=== PATIENT | male | born 1950 | race African-American/Black ===

== ENCOUNTER 2017-10-31 12:37 | Observation (INO) | payer MEDICARE, SELFPAY ==
[2017-10-31 13:04] LABS: #Eosinphils 0.2 thou/uL (0.0-0.7); #Lymphocytes 2.1 thou/uL (1.20-3.40); #Monocytes 0.4 thou/uL (0.11-0.59); #Neutrophils 2.6 thou/uL (1.40-6.50); %Basophils 0.9 % (0.0-1.0); %Eosinophils 3.3 % (0.0-10.0); %Lymphocytes 39.7 % (21.0-51.0); %Monocytes 6.7 % (0.0-10.0); %Neutrophils 49.4 % (42.0-75.0); Hemoglobin 14.1 g/dL (14.0-18.0); Mean Corpuscular HGB CONC 33.6 g/dL (32.0-36.0); Mean Corpuscular Hemoglobin 30.3 pg (27.0-31.0); Mean Corpuscular Volume 90.2 fL (78.0-98.0); Mean Platelet Volume 7.1 fL (7.4-10.4); Platelet Count 302 thou/uL (130-400); RBC Distribution Width 12.2 % (11.5-14.5); Red Blood Cell (RBC) Count 4.65 mill/uL (4.70-6.10); White Blood Cell (WBC) Count 5.3 thou/uL (4.8-10.8)
[2017-10-31 13:21] LABS: ALT (SGPT) 14 U/L (8-55); AST (SGOT) 13 U/L (5-34); Alkaline Phosphatase 77 U/L (40-150); Anion Gap 11 mmol/L (10-20); BUN (Urea Nitrogen) 13 mg/dL (8.4-25.7); Bilirubin, Total 0.5 mg/dL (0.2-1.2); CK (CPK) 92 U/L (30-200); Calc. Creatinine Clearance 0 mL/min (70-130); Calcium 9.1 mg/dL (7.8-10.44); Carbon Dioxide 25 mmol/L (23-31); Chloride 107 mmol/L (98-107); Estimated GFR-MDRD 69; Globulin 2.9 g/dL (2.4-3.5); Glucose 240 mg/dL (80-115); Lipase 30 U/L (8-78); Potassium 4.3 mmol/L (3.5-5.1); Protein, Total 6.9 g/dL (5.8-8.1); Sodium 139 mmol/L (136-145)
[2017-10-31 13:23] LABS: CKMB 1.2 ng/mL (0-6.6); Troponin I Less than 0.010 ng/mL (< 0.028)
--- NOTE | 2017-10-31 13:35 | RAD ---
PORTABLE AP CHEST: Date: 10/31/17 HISTORY: Chest pain. COMPARISON: 04/19/12. FINDINGS: Cardiac silhouette and pulmonary vasculature are within normal limits. Linear densities are seen with in the right mid lung zone, which was also present on the prior study, but is slightly more prominent on this exam. This is probably related to mild scarring. Lungs are otherwise clear. Degenerative roula nges are present in the spine. No other interval change. IMPRESSION: 1. No acute cardiopulmonary process. 2. Findings likely related to linear area of scarring in the right mid lung zone. POS: [facility]
[2017-10-31] MEDS ORDERED: Ketorolac Tromethamine 30 MG/ML VIAL ONE (14:28)
--- NOTE | 2017-10-31 15:24 | ULT ---
RIGHT UPPER QUADRANT ULTRASOUND: HISTORY: Pain. Right-sided chest pain. Nausea, vomiting, and diarrhea. COMPARISON: 06/13/2008 TECHNIQUE: Utilizing a Multi-Hertz transducer, sonographic imaging of the right upper quadrant was performed in the longitudinal and transverse planes. FINDINGS: The pancreas is obscured by bowel gas. Limited evaluation of the hepatic parenchyma due to bowel gas. There is increased echogenicity of th e visualized hepatic parenchyma, which may be due to technical limitations, hepatic steatosis, or hep atocellular disease. The right hepatic lobe measures 15.5 cm. The main portal vein is patent. Appropriate directional flow. Common bile duct diameter is 0.2 cm. Within the lumen of the gallbladder, there is no evidence of sludge or stones. The gallbladder wall is not thickened. No pericholecystic fluid. A negative Bernard sign is reported. Right kidney: No hydronephrosis. Maximum dimension is 9 cm. IMPRESSION: 1. No sonographic evidence of cholelithiasis or cholecystitis. 2. Increased echogenicity of the liver, as described above. POS: [facility]
[2017-10-31] MEDS ORDERED: Aspirin 325 MG TAB ONE (16:39)
[2017-10-31] MEDS ORDERED: Nitroglycerin 2% Ointment 1 INCH/1 GM Packet ONE (16:39)
[2017-10-31 18:41] LABS: CKMB 1.1 ng/mL (0-6.6); Troponin I Less than 0.010 ng/mL (< 0.028)
--- NOTE | 2017-10-31 19:04 | PDOC.FPRHP ---
- History of Present Illness Chief Complaint: Chest Pain History of Present Illness: This is a 67yo M with pmh of CVA and HTN presenting with 3-4 day hx of increasing R chest and RUQ abdominal pain. Pt reports that pain is sharp and pulling in character and that it is exacerbated by cough. Onset happened when he was sitting down and was sudden in onset. Pt also reports that he has intermittent Pain in the RUQ of his abdomen. Pt has not had any changes in diet and denies recent mass consumption of alcohol ED Course: CXR: no acute cardiopulm changes, R lung linear scarring, troponin negative, Abdominal US- no evidence of cholecystitis or cholelithiasis with negative harvey, pancreas not visualized well - Allergies/Adverse Reactions Allergies Allergy/AdvReac Type Severity Reaction Status Date / Time No Known Drug Allergies Allergy Verified 07/23/13 01:07 - Home Medications Medication Instructions Recorded Confirmed Type Aspirin [Ecotrin Regular Strength] 325 mg PO DAILY #0 tab 07/23/13 10/31/17 Rx Atorvastatin Calcium [Lipitor] 40 mg PO HS #30 tab 11/01/17 Rx Lisinopril [Zestril] 10 mg PO DAILY #30 tab 11/01/17 Rx glipiZIDE [Glucotrol XL] 5 mg PO QAM-WM #30 tab 11/01/17 Rx metFORMIN HCl [Metformin HCl] 1,000 mg PO BID #60 tablet 11/01/17 Rx - History PMHx: HTN, DM PSHx: R knee FHx: negative Social: denies EtOH/tobacco/drugs - Review of Systems General: denies: fever/chills, fatigue ENT: denies: nasal congestion, rhinorrhea Respiratory: denies: congestion, shortness of breath Cardiovascular: reports: chest pain. denies: palpitation Gastrointestinal: reports: abdominal pain. denies: nausea, vomiting Genitourinary: denies: dysuria Musculoskeletal: denies: stiffness, swelling - Vital signs BP: [146/84] HR: [59] RR: [16] Tmax: [97.7] Pox: [94]% on [RA] Wt: [100kg] - Physical Exam Constitutional: NAD, awake, alert and oriented HEENT: normocephalic and atraumatic, EOMI, grossly normal vision, normal nasal mucosa, MMM Neck: trachea midline Chest: other (some reproducible chest pain on the R) Heart: RRR, normal S1/S2 Lungs: CTAB, no respiratory distress Abdomen: soft, other (negative harvey, RUQ and RLQ tenderness to palpation, negative rovsing, negative obturator, negative heel tap) Neurological: no focal deficit Skin: no rash/lesions, good turgor Psychiatric: normal mood and affect, good judgment and insight FMR H&P: Results - Labs Result Diagrams: 10/31/17 12:54 10/31/17 12:54 Lab results: WBC 5.3 thou/uL (4.8-10.8) 10/31/17 12:54 Hgb 14.1 g/dL (14.0-18.0) 10/31/17 12:54 Hct 41.9 % (42.0-52.0) L 10/31/17 12:54 MCV 90.2 fL (78.0-98.0) 10/31/17 12:54 Plt Count 302 thou/uL (130-400) 10/31/17 12:54 Neutrophils % 49.4 % (42.0-75.0) 10/31/17 12:54 Sodium 139 mmol/L (136-145) 10/31/17 12:54 Potassium 4.3 mmol/L (3.5-5.1) 10/31/17 12:54 Chloride 107 mmol/L (98-107) 10/31/17 12:54 Carbon Dioxide 25 mmol/L (23-31) 10/31/17 12:54 BUN 13 mg/dL (8.4-25.7) 10/31/17 12:54 Creatinine 1.26 mg/dL (0.6-1.3) 10/31/17 12:54 Glucose 240 mg/dL (80-115) H 10/31/17 12:54 Calcium 9.1 mg/dL (7.8-10.44) 10/31/17 12:54 Total Bilirubin 0.5 mg/dL (0.2-1.2) 10/31/17 12:54 AST 13 U/L (5-34) 10/31/17 12:54 ALT 14 U/L (8-55) 10/31/17 12:54 Alkaline Phosphatase 77 U/L (40-150) 10/31/17 12:54 Creatine Kinase 92 U/L (30-200) 10/31/17 12:54 CK-MB (CK-2) 1.1 ng/mL (0-6.6) 10/31/17 17:58 Serum Total Protein 6.9 g/dL (5.8-8.1) 10/31/17 12:54 Albumin 4.0 g/dL (3.4-4.8) 10/31/17 12:54 Lipase 30 U/L (8-78) 10/31/17 12:54 FMR H&P: A/P - Problem List (1) Atypical chest pain Status: Acute Code(s): R07.89 - OTHER CHEST PAIN (2) History of CVA (cerebrovascular accident) Status: Chronic Code(s): Z86.73 - PRSNL HX OF TIA (TIA), AND CEREB INFRC W/O RESID DEFICITS (3) Diabetes Status: Chronic Code(s): E11.9 - TYPE 2 DIABETES MELLITUS WITHOUT COMPLICATIONS (4) Hypertension Status: Chronic Code(s): I10 - ESSENTIAL (PRIMARY) HYPERTENSION - Plan Atypical Chest likely secondary to costochondritis. A- Trop/EGK/CXR negative but has heart score 5. pain is reproducible. GI causes seem unlikely with exam and normal lipase/liver enzymes. P- stress test. -trend trops -Mg, Phos, TSH, FLP -NPO after midnight -NSAIDs prn. Hypertension A-BP stable P-home meds HLD -home meds. Diabetes Mellitus. -home meds -A1C Hx of CVA in 2013 -prior watershed infart of left cerebrum; no deficits. FMR H&P: Upper Level - Pertinent history Raul Rausch is a 67 year old male with a past history of DM type II, hyperlipidemia, hypertension, and history of CVA/TIA who presents to the ED with a 2 day history of R-sided chest pain and RUQ pain for the past 3-4 days. The pain occurred while at rest. It is exacerbated by deep inspiration and coughing and alleviated by certain position changes. He denies any URI type symptoms or fever. He just started coughing today. He has never had pain like this before. - Pertinent findings Vitals: T: 97.6 RR: 16 Pulse: 59 BP: 146/84 SpO2: 94% on RA Wt: 100.24 kg. Physical exam General: alert and oriented; in no apparent distress. Heart: regular rate and rhythm with no murmurs, rubs, or gallops. Reproducible right anterior chest wall tenderness to palpation Lungs: clear to auscultation bilaterally; no crackles, wheezes, or rhonchi. Extremities: 2+ peripheral pulses; no edema. RUQ US: no evidence of cholecystitis. CXR: area of scarring in right mid lung zone; no acute process. EKG: No ST segment elevations or depressions. Trop: < 0.01 - Plan Date/Time: 10/31/17 1904 I, Tiffany Rodriguez, have evaluated this patient and agree with findings/plan as outlined by mechanical intern resident. Pertinent changes/additions are listed here. Atypical Chest likely secondary to costochondritis. - due to heart score of 5, will proceed with stress test. - trend trops; Mg, Phos, TSH, FLP - NPO after midnight - NSAIDs prn. Hypertension - BP stable. will resume home meds Hyperlipidemia - will resume home meds. Diabetes Mellitus. - will resume home meds - A1C Hx of CVA in 2014 - prior watershed infart of left cerebrum; no deficits. Attending Addendum - Attending Addendum Date/Time: 11/01/17 0100 I personally evaluated the patient and discussed the management with Dr. Doshi and Dr. Rodriguez I agree with the History, Examination, Assessment and Plan documented above with any addition or exceptions noted below. 67 yo male with multiple risk factors and medical problems admitted for ASC rule out. Atypical chest pain but significant risk factors. Current hx related to MSK vs pluersy. But due to risk with trend trop and EKG overnight with stress in AM. Minimize risk factors. Adjust home meds as needed. Treat pain. ABrayMD
[2017-10-31] MEDS ORDERED: Dextrose 5% in Water 1,000 ML IV PRN (20:23)
[2017-10-31] MEDS ORDERED: Dextrose 50% Abboject 50 ML SYRINGE SLOW IVP PRN (20:23)
[2017-10-31] MEDS ORDERED: Ondansetron ODT 4 MG TAB PO PRN (20:23)
[2017-10-31] MEDS ORDERED: Acetaminophen 325 MG TAB PO PRN (20:23)
[2017-10-31] MEDS ORDERED: Albuterol Sulfate 1.25 MG/3 ML NEB NEB SCH (20:30)
[2017-10-31 20:37] VITALS: BMI 37.8
[2017-10-31] MEDS ORDERED: Pravastatin Sodium 40 MG TAB PO SCH (21:00)
[2017-10-31] MEDS: Famotidine 20 MG TAB PO SCH (22:01)
[2017-10-31] MEDS: Insulin Regular 300 UNITS/3 ML VIAL SC PRN (22:02)
[2017-10-31 22:40] LABS: Hemoglobin A1c 9.1 % (4.0-6.0)
[2017-10-31 22:50] LABS: Cardiac Risk 5.9 (Less than 4.5)
[2017-10-31 22:54] LABS: Magnesium 1.9 mg/dL (1.6-2.6); Troponin I Less than 0.010 ng/mL (< 0.028)
--- NOTE | 2017-11-01 05:44 | PDOC.FM ---
- Subjective Subjective: Pt says that his CP only bothers him when he moves. States that he wants a glucometer so that he can check his blood sugars at home. States he has had polyuria. - Objective Vital Signs & Weight: Vital Signs (12 hours) Temp Pulse Resp BP BP Pulse Ox 11/01/17 02:57 98 F 64 18 140/74 95 10/31/17 23:21 98.2 F 62 18 149/77 H 95 10/31/17 22:47 53 L 16 95 10/31/17 20:15 97.7 F 53 L 15 184/87 H 98 Weight Weight 102.994 kg I&O: 10/30/17 10/31/17 11/01/17 06:59 06:59 06:59 Intake Total 610 Balance 610 Result Diagrams: 10/31/17 12:54 10/31/17 12:54 <Lizette Ha - Last Filed: 11/01/17 09:00> - Objective Vital Signs & Weight: Vital Signs (12 hours) Temp Pulse Resp BP BP Pulse Ox 11/01/17 07:14 97.8 F 54 L 16 134/68 97 11/01/17 02:57 98 F 64 18 140/74 95 10/31/17 23:21 98.2 F 62 18 149/77 H 95 10/31/17 22:47 53 L 16 95 Weight Weight 102.994 kg I&O: 10/31/17 11/01/17 11/02/17 06:59 06:59 06:59 Intake Total 610 Balance 610 Result Diagrams: 10/31/17 12:54 10/31/17 12:54 <Darion Khan - Last Filed: 11/01/17 09:32> Phys Exam - Physical Examination Constitutional: NAD HEENT: PERRLA, oral pharynx no lesions Respiratory: no wheezing, no rales, no rhonchi, clear to auscultation bilateral Cardiovascular: RRR 1/6 systolic murmur Gastrointestinal: soft, non-tender, no distention, positive bowel sounds Musculoskeletal: no edema, pulses present Neurological: moves all 4 limbs Psychiatric: normal affect, A&O x 3 Skin: normal turgor, cap refill <2 seconds <Lizette Ha - Last Filed: 11/01/17 09:00> Dx/Plan (1) Atypical chest pain Code(s): R07.89 - OTHER CHEST PAIN Status: Acute (2) Diabetes Code(s): E11.9 - TYPE 2 DIABETES MELLITUS WITHOUT COMPLICATIONS Status: Chronic (3) Hypertension Code(s): I10 - ESSENTIAL (PRIMARY) HYPERTENSION Status: Chronic (4) History of CVA (cerebrovascular accident) Code(s): Z86.73 - PRSNL HX OF TIA (TIA), AND CEREB INFRC W/O RESID DEFICITS Status: Chronic - Plan Plan: 57 yo M with atypical chest pain likely 2/2 costochondritis Atypical Chest likely secondary to costochondritis. - EKG/CXR negative. Cardiac enzymes negative. - CXR did show R lung linear scarring - heart score 5. pain is reproducible. - GI causes seem unlikely with exam and normal lipase/liver enzymes. - Mg, Phos - normal - TSH -wnl - NPO since midnight - stress test this AM Hypertension - resume home meds HLD -home meds. -FLP- Triglycerides high at 153 -Start high intensity statin Diabetes Mellitus. - uncontrolled, A1C 9.1. - resume home meds - start mod SSI and glyburide Hx of CVA in 2014 -prior watershed infart of left cerebrum; no deficits. <Lizette Ha - Last Filed: 11/01/17 09:00> Attending Addendum - Attending Addendum Date/Time: 11/01/1731 I personally evaluated the patient and discussed the management with Dr. Ha. I agree with the History, Examination, Assessment and Plan documented above with any addition or exceptions noted below. Patient here with reproducible chest pain with movement. He has been effectively ruled out for ACS. Due to his risk factors, obtaining stress testing this morning. He needs modulation of his DM regimen for improved control. Await results of stress test and anticipate discharge afterward. Diabetic education. <Darion Khan R - Last Filed: 11/01/17 09:32>
[2017-11-01] MEDS ORDERED: metFORMIN 500 MG TAB PO SCH (08:00)
[2017-11-01 08:15] VITALS: TEMP 97.8
[2017-11-01] MEDS ORDERED: Enoxaparin Sodium 40 MG/0.4 ML SYRINGE SC SCH (09:00)
[2017-11-01] MEDS ORDERED: Lisinopril 10 MG TAB PO SCH (09:00)
[2017-11-01] MEDS ORDERED: Aspirin 325 mg Enteric Coated Tablet PO SCH (09:00)
[2017-11-01] MEDS ORDERED: Regadenoson 0.4 MG/5 ML SYRINGE ONE (13:44)
[2017-11-01] MEDS: Famotidine 20 MG TAB PO SCH (13:59)
[2017-11-01] MEDS: Insulin Regular 300 UNITS/3 ML VIAL SC PRN (14:06)
[2017-11-01 14:10] VITALS: BP 174/88
--- NOTE | 2017-11-01 14:45 | NM ---
MYOCARDIAL PERFUSION STUDY: 11/01/2017 HISTORY: Chest pain. Hypertension. Dyslipidemia. COMPARISON: 04/19/2012 RADIOPHARMACEUTICAL: Technetium 99m sestamibi IV, 33 millicuries, at stress. Technetium 99m sestamibi IV, 10 millicuries, at rest. MEDICATIONS: Lexiscan 0.4 mg IV. FINDINGS: There is normal uptake and distribution of radiotracer seen throughout the left ventricular myocardiu m on both the rest and stress acquisitions. No reversible defect is identified. Quantitative analys is shows no reversible defect. Gated images show normal ventricular wall motion and wall thickening. The calculated left ventricular ejection fraction is 55%. The calculated LVEF on the prior study, in 2012, was 52%. IMPRESSION: 1. Normal myocardial perfusion study without evidence of a reversible defect seen to suggest ischemi a. 2. Normal left ventricular ejection fraction of 55%. POS: [facility]
[2017-11-01] MEDS ORDERED: Atorvastatin Calcium 40 MG TAB PO SCH (21:00)
--- NOTE | 2017-11-02 20:58 | DIS-2 ---
DATE OF ADMISSION: 10/31/2017 DATE OF DISCHARGE: 11/01/2017 RESIDENT: Lizette Ha MD ADMITTING ATTENDING: Dr. Darion Khan. DISCHARGE ATTENDING: Dr. Darion Khan. CONSULTATIONS: None. PROCEDURES: Chest x-ray on 10/31/2017. Impression: No acute pulmonary process. Findings likely related to a linear area of scarring in the right mid lung zone. Findings include cardiac silhouette and pulmonary vasculature within normal limits. Linear densities were seen within the right mid lung zone , which was also present on the prior study, but is slightly more prominent on this exam. This is probably related to mild scarring. Lungs are otherwise clear. Degenerative changes are present in the spine. No other interval change. 10/31/17: Right upper quadrant ultrasound. Impression: No sonographic evidence of cholelithiasis or cholecystitis. Increased echogenicity of the liver. Limited evaluation of the hepatic parenchyma due to bowel gas. There is increased echogenicity of the visualized hepatic parenchyma, which may be due to technical limitations, hepatic steatosis, or hepatocellular disease. The right hepatic lobe measures 16.5 cm. On 11/01/2017 stress test, nuclear medicine. Impression: Normal myocardial perfusion study without evidence of a reversible defect seen suggest ischemia. Normal left ventricular ejection fraction of 55%. PRIMARY DIAGNOSIS: Costochondritis. SECONDARY DIAGNOSES: 1. Hypertension. 2. Hyperlipidemia. 3. Diabetes mellitus type 2. 4. History of cerebrovascular accident in 2013. DISCHARGE MEDICATIONS: 1. Aspirin 325 mg p.o. daily. 2. Atorvastatin 40 mg p.o. at bedtime. 3. Glipizide 5 mg p.o. q.a.m. with meals. 4. Lisinopril 10 mg p.o. daily. 5. Metformin 1000 mg p.o. b.i.d. DISCONTINUED MEDICATIONS: None. HISTORY OF PRESENT ILLNESS AND HOSPITAL COURSE: This is a 67-year-old male with past medical history of CVA, HTN, and T2DM presenting with 3-4 days of increased right chest and right upper quadrant abdominal pain. The patient reports that the pain is sharp and pulling in character and that is exacerbated by cough. Onset happened when he was sitting down and with sudden onset. The patient also reports that he has intermittent pain in the right upper quadrant of his abdomen. The patient has not had any changes in diet. Denies recent mass consumption of alcohol. In the ED, a chest x-ray that showed no acute cardiopulmonary changes, it did show right lung linear scarring, the troponins were negative, abdominal ultrasound showed no evidence of cholecystitis or cholelithiasis with a negative Bernard sign, pancreas was not visualized well. His heart score was 5. His pain was reproducible on palpation. His mag and phos and TSH were found to be within normal limits. His stress test was found to be normal. For his hyperlipidemia, his triglycerides were found to be high at 152. He was started on a high intensity statin. His diabetes mellitus was uncontrolled with an A1c of 9.1. We resumed his home medications, started moderate sliding scale insulin in the hospital and started glyburide. DISPOSITION: Stable. DISCHARGE INSTRUCTIONS: 1. Location: Home. 2. Diet: Consistent carb and Heart healthy. 3. Activity: As tolerated. 4. Followup: with Dr. Garcia within 7 days. MARBELLA
--- NOTE | 2017-11-08 09:28 | STRESS ---
Acquisition Time: 2017-11-01 12:23:19 Total Exercise Time: 00:01:00 Test Indications: CHEST PAIN Medications: Protocol: LEXISCAN Max HR: 082 BPM 53% of Pred: 152 BPM Max BP: 134/084 mmHG Max Work Load: 1.0 METS THE PATIENT WAS INJECTED WITH LEXISCAN. HE DID DEVELOP CHEST PAIN. THERE WAS NO SIGNIFICANT ST DEPRESSION WITH STRESS. AWAIT NUCLEAR IMAGES FOR DEFINITIVE DIAGNOSIS Confirmed by GRISELDA CROCKER ([id number]), editor & co founder SUSY GRIGGS ([id number]) on 11/08/2017 9:28:15 AM Referred By: MD Dianne GARCIA Confirmed By:GRISELDA CROCKER
--- NOTE | 2017-11-09 18:23 | EKG ---
Test Reason : Blood Pressure : / mmHG Vent. Rate : 067 BPM Atrial Rate : 067 BPM P-R Int : 152 ms QRS Dur : 104 ms QT Int : 432 ms P-R-T Axes : 049 -28 -19 degrees QTc Int : 456 ms Normal sinus rhythm Moderate voltage criteria for LVH, may be normal variant Borderline ECG benign early repolarization Confirmed by NAZIA SWIFT, KESHIA Ray ([id number]), production editor ALEXIA GALVAN ([id number]) on 11/09/2017 6:22:26 PM Referred By: Confirmed By:KESHIA MANDUJANO MD
== END 2017-11-01 15:25 | disposition home or self-care (01) ==
LOC: ERS 12:37 → 2SW 17:35
PROVIDERS: ADMIT Student in an Organized Health Care Education/Training Program; ATTEND Student in an Organized Health Care Education/Training Program
DX: M94.0 Chondrocostal junction syndrome [Tietze] (principal); R10.11 Right upper quadrant pain; I10 Essential (primary) hypertension; E11.9 Type 2 diabetes mellitus without complications; E78.5 Hyperlipidemia, unspecified; Z86.73 Personal history of transient ischemic attack (TIA), and cerebral infarction without residual deficits; Z79.82 Long term (current) use of aspirin; Z79.84 Long term (current) use of oral hypoglycemic drugs; Z79.899 Other long term (current) drug therapy
CPT/HCPCS: 71045; 76705; 78452; 80061; 82550; 82553 ×2; 82962 ×2; 83036; 83690; 83735; 84100; 84484 ×2; 93005; 93017; 94640; 96372 ×2; 99285; A9500; G0378 ×2; 36415; 36416; 80053; 84443; 85025; J1650; J1815; J1885; J2785